=== PATIENT | female | born 1980 | race Asian ===

== ENCOUNTER 2023-12-20 08:37 | Day surgery (SDC) | payer OTHER ==
[2023-12-19 11:55] VITALS: BMI 23.8
[2023-12-20] MEDS ORDERED: Dexamethasone 20 MG/5 ML VIAL ONE (09:14)
[2023-12-20] MEDS ORDERED: PROPOFOL 20 ML ONE (09:14)
[2023-12-20] MEDS ORDERED: fentaNYL PF 100 MCG/2 ML SYRINGE ONE (09:14)
[2023-12-20] MEDS ORDERED: Lidocaine 1% PF 5 ML VIAL ONE (09:14)
[2023-12-20] MEDS ORDERED: Ondansetron PF 4 MG/2 ML Vial ONE ×2 (09:14→14:03)
[2023-12-20] MEDS ORDERED: Midazolam HCl 2 mg/2 ml Vial ONE (09:14)
[2023-12-20] MEDS ORDERED: Oxymetazoline HCl 0.05% (30 ML BOT) ONE ×2 (09:21→09:29)
[2023-12-20] MEDS ORDERED: Lidocaine 1% (PF) 30 ML VIAL ONE (09:21)
[2023-12-20] MEDS ORDERED: Bacitracin Zinc Ointment 30 gm TUBE ONE (09:21)
[2023-12-20] MEDS ORDERED: EPINEPHrine 1 MG/ML VIAL ONE (09:21)
[2023-12-20] MEDS ORDERED: Scopolamine 1 mg/72 hour Patch ONE (09:32)
[2023-12-20] MEDS ORDERED: methylPREDNISolone Acetate 40 mg/ml Vial ONE (09:47)
[2023-12-20] MEDS ORDERED: Ferric Subsulfate 8 ML TOPICAL SOLN ONE (10:04)
[2023-12-20] MEDS ORDERED: HYDROmorphone 0.5 MG/0.5 ML SYRINGE ONE ×2 (10:57→11:12)
[2023-12-20 11:38] LABS: Hematocrit 46.3 % (36.0-47.0)
[2023-12-20] MEDS ORDERED: fentaNYL 50 mcg/mL 1 mL Vial ONE (11:53)
[2023-12-20] MEDS ORDERED: HYDROcodone/Acetaminophen 5/325 mg Tablet ONE (12:19)
== END 2023-12-20 14:30 | disposition home or self-care (01) ==
LOC: SDC 08:37
PROVIDERS: ATTEND Otolaryngology Plastic Surgery within the Head & Neck
PROC: 09TU4ZZ Resection of Right Ethmoid Sinus, Percutaneous Endoscopic Approach (ICD-10-PCS; principal; 2023-12-20)
PROC: 0CTNXZZ Resection of Uvula, External Approach (ICD-10-PCS; principal; 2023-12-20)
PROC: 09TV4ZZ Resection of Left Ethmoid Sinus, Percutaneous Endoscopic Approach (ICD-10-PCS; principal; 2023-12-20)
PROC: 09BM4ZZ Excision of Nasal Septum, Percutaneous Endoscopic Approach (ICD-10-PCS; principal; 2023-12-20)
PROC: 0CTPXZZ Resection of Tonsils, External Approach (ICD-10-PCS; principal; 2023-12-20)
PROC: 0CTQXZZ Resection of Adenoids, External Approach (ICD-10-PCS; principal; 2023-12-20)
PROC: 09TL4ZZ Resection of Nasal Turbinate, Percutaneous Endoscopic Approach (ICD-10-PCS; principal; 2023-12-20)
DX: J35.01 Chronic tonsillitis (principal); J34.2 Deviated nasal septum; J34.3 Hypertrophy of nasal turbinates; J32.9 Chronic sinusitis, unspecified; G47.33 Obstructive sleep apnea (adult) (pediatric); K13.79 Other lesions of oral mucosa; Z79.51 Long term (current) use of inhaled steroids; Z79.899 Other long term (current) drug therapy; Z98.890 Other specified postprocedural states; Z88.2 Allergy status to sulfonamides; Z91.030 Bee allergy status; Z91.018 Allergy to other foods; Z91.011 Allergy to milk products; Z91.040 Latex allergy status; Z88.8 Allergy status to other drugs, medicaments and biological substances
CPT/HCPCS: 85014; 88304; J0171; J1030; J1100; J1170; J2001; J2250; J2405; J2704; J3010